=== PATIENT | male | born 1985 ===

== ENCOUNTER → 2020-01-04 01:14 | Outpatient (CLI) | payer OTHER, SELFPAY ==
[2020-01-04 03:21] LABS: COVID19 -Nasal RAPID Negative (Negative)
== END ==
PROVIDERS: PCP Physician Assistant; Referring Provider Student in an Organized Health Care Education/Training Program; Visit Provider Student in an Organized Health Care Education/Training Program
DX: Z11.59 Encounter for screening for other viral diseases (principal)
CPT/HCPCS: 87635

== ENCOUNTER → 2021-09-14 09:10 | Outpatient (CLI) | payer OTHER, SELFPAY ==
[2021-09-14 09:46] LABS: COVID19 -Nasal RAPID Negative (Negative)
== END ==
PROVIDERS: Referring Provider Nurse Practitioner Family; Visit Provider Nurse Practitioner Family
DX: Z20.822 Contact with and (suspected) exposure to COVID-19 (principal)
CPT/HCPCS: 87635